=== PATIENT | female | born 1970 | race Caucasian/White ===

== ENCOUNTER → 2018-10-07 | Outpatient (CLI) | payer OTHER ==
[~2018-10-07] MED LIST: ALPR.5 PO; BUPR150ER PO; DANA200 PO; Lovastatin10 MG PO; META800 PO; OXCA300 PO; Percocet 5-3251 EACH PO; Zofran8 MG PO
== END | disposition home or self-care (01) ==
LOC: LAB EV 11:13 → LAB SHORT 11:13
DX: N39.0 Urinary tract infection, site not specified (principal)
CPT/HCPCS: 87077; 87086; 87186

== ENCOUNTER → 2018-10-24 | Outpatient (CLI) | payer OTHER | END | disposition home or self-care (01) | LOC: LAB 14:52 → LAB SHORT 14:52 | DX: N39.0 Urinary tract infection, site not specified (principal) | CPT/HCPCS: 87077; 87086; 87186 ==

== ENCOUNTER → 2019-01-23 | Outpatient (CLI) | payer OTHER ==
[2019-01-27 15:07] LABS: HPV 16 Negative (Negative); HPV 18 Negative (Negative); HPV OTHER HR TYPES Negative (Negative)
== END ==
LOC: LAB SHORT 10:00 → LAB 10:00
PROVIDERS: Registered Nurse Community Health
DX: Z12.4 Encounter for screening for malignant neoplasm of cervix (principal)
CPT/HCPCS: 87624; G0123

== ENCOUNTER → 2019-06-17 | Outpatient (CLI) | payer OTHER | END | disposition home or self-care (01) | LOC: LAB SHORT 12:51 → LAB EV 12:51 | DX: R31.9 Hematuria, unspecified (principal) | CPT/HCPCS: 87077; 87086; 87186 ==

== ENCOUNTER → 2019-10-03 | Outpatient (CLI) | payer OTHER | LOC: LAB EV 18:33 → LAB SHORT 18:33 | DX: R30.9 Painful micturition, unspecified (principal) | CPT/HCPCS: 87086 ==

== ENCOUNTER → 2019-11-26 | Outpatient (CLI) | payer OTHER | END | disposition home or self-care (01) | LOC: LAB EV 18:18 → LAB SHORT 18:18 | DX: N39.0 Urinary tract infection, site not specified (principal) | CPT/HCPCS: 87077; 87086; 87186 ==

== ENCOUNTER 2020-03-14 17:12 | Inpatient (IN) | payer OTHER ==
[~2020-03-14] VITALS: Ht 170.2 cm; Wt 73.0 kg
[2020-03-14 17:48] LABS: BASOPHILS ABSOLUTE AUTO 0.12 K/mm3 (0.00-0.23); BASOPHILS PERCENT AUTO 0 % (0-2); EOSINOPHILS ABSOLUTE AUTO 0.02 K/mm3 (0.00-0.68); EOSINOPHILS PERCENT AUTO 0 % (0-6); Hemoglobin 20.6 g/dL (11.5-16.0); IMMATURE GRAN ABSOLUTE AUTO 0.17 K/mm3 (0.00-0.10); IMMATURE GRAN PERCENT AUTO 1 % (0-1); LYMPHOCYTES ABSOLUTE AUTO 3.05 K/mm3 (0.84-5.20); LYMPHOCYTES PERCENT AUTO 11 % (21-46); MONOCYTES ABSOLUTE AUTO 1.41 K/mm3 (0.16-1.47); MONOCYTES PERCENT AUTO 5 % (4-13); Mean Corpuscular HGB 30.2 pg (26.0-34.0); Mean Corpuscular HGB Conc 33.9 g/dL (31.5-36.5); Mean Corpuscular Volume 89 fL (80-100); Mean Platelet Volume 9.2 fL (9.1-12.4); NEUTROPHILS ABSOLUTE AUTO 22.25 K/mm3 (1.96-9.15); NEUTROPHILS PERCENT AUTO 82 % (41-73); Platelet Count 483 K/mm3 (150-400); RDW Coefficient Variation 11.7 % (11.7-14.2); RDW Standard Deviation 38.5 fL (35.1-46.3); Red Blood Cell Count 6.81 M/mm3 (3.80-5.20); White Blood Cell Count 27.02 K/mm3 (4.00-11.30)
[2020-03-14 17:52] LABS: Hematocrit 60.8 % (33.0-51.0)
[2020-03-14 18:06] LABS: Albumin, Blood 3.6 g/dL (3.4-5.0); Albumin/Globulin Ratio 0.9 (0.8-1.8); Bilirubin, Total 0.6 mg/dL (0.1-1.0); Calcium, Blood 9.6 mg/dL (8.5-10.1); Creatinine, Blood 1.21 mg/dL (0.40-1.00); Globulin, Blood 4.1 g/dL (2.2-4.0); Potassium, Blood 3.9 mmol/L (3.5-5.5); Total Protein, Blood 7.7 g/dL (6.4-8.2)
[2020-03-14] MEDS ORDERED: Ketoconazole120 ML TOP (20:23)
[2020-03-14] MEDS ORDERED: Buspirone HCl5 MG PO (20:24)
[2020-03-14] MEDS ORDERED: ATORVASTATIN CA20 MG PO (20:25)
[2020-03-14 20:42] LABS: Source, Urine Clean Catch
[2020-03-14] MEDS ORDERED: DANA200 PO (20:44)
[2020-03-14 20:47] LABS: Appearance, Urine Cloudy (Clear); Blood, Urine 3+ (Neg); Color, Urine Yellow (P-Yellow); Glucose Qualitative, Urine Neg (Neg); Ketones, Urine 1+ (Neg); Leukocyte Esterase, Urine 2+ (Neg); Nitrite, Urine Pos (Neg); Protein, Urine 2+ (Neg); Specific Gravity, Urine 1.025 (1.003-1.022); Urobilinogen, Urine 1+ (Normal)
[2020-03-14 21:04] LABS: Bilirubin, Urine 1+ (Neg)
[2020-03-14 21:06] LABS: Bacteria Many /hpf; Red Blood Cells, Urine 0-2 /hpf (0-2); Squamous Epithelial Cells Many /hpf (Few)
[2020-03-14 22:29] LABS: BASOPHILS ABSOLUTE AUTO 0.07 K/mm3 (0.00-0.23); BASOPHILS PERCENT AUTO 0 % (0-2); EOSINOPHILS ABSOLUTE AUTO 0.03 K/mm3 (0.00-0.68); EOSINOPHILS PERCENT AUTO 0 % (0-6); Hematocrit 53.2 % (33.0-51.0); Hemoglobin 17.5 g/dL (11.5-16.0); IMMATURE GRAN ABSOLUTE AUTO 0.07 K/mm3 (0.00-0.10); IMMATURE GRAN PERCENT AUTO 0 % (0-1); LYMPHOCYTES ABSOLUTE AUTO 2.17 K/mm3 (0.84-5.20); LYMPHOCYTES PERCENT AUTO 13 % (21-46); MONOCYTES ABSOLUTE AUTO 1.17 K/mm3 (0.16-1.47); MONOCYTES PERCENT AUTO 7 % (4-13); Mean Corpuscular HGB 29.9 pg (26.0-34.0); Mean Corpuscular HGB Conc 32.9 g/dL (31.5-36.5); Mean Corpuscular Volume 91 fL (80-100); Mean Platelet Volume 9.2 fL (9.1-12.4); NEUTROPHILS ABSOLUTE AUTO 13.52 K/mm3 (1.96-9.15); NEUTROPHILS PERCENT AUTO 79 % (41-73); Platelet Count 367 K/mm3 (150-400); RDW Coefficient Variation 11.8 % (11.7-14.2); RDW Standard Deviation 39.6 fL (35.1-46.3); Red Blood Cell Count 5.86 M/mm3 (3.80-5.20); White Blood Cell Count 17.03 K/mm3 (4.00-11.30)
[2020-03-14 22:44] LABS: International Normalized Ratio 1.14; Prothrombin Time Results 12.1 Sec (9.7-11.5)
[2020-03-14 22:49] LABS: Anion Gap 6 mmol/L (6-16); Blood Urea Nitrogen 26 mg/dL (8-24); Bun/Creatinine Ratio 28.1 (12.0-20.0); CO2, Blood 29 mmol/L (21-32); Calcium, Blood 7.2 mg/dL (8.5-10.1); Chloride, Blood 103 mmol/L (98-108); Creatinine, Blood 0.93 mg/dL (0.40-1.00); Glomerular Filtration Rate >60 (60-); Glucose, Blood 144 mg/dL (70-99); Potassium, Blood 4.2 mmol/L (3.5-5.5); Sodium, Blood 138 mmol/L (136-145)
[2020-03-14 23:00] LABS: U Amphetamine Screen DETECTED; U Barbituate Screen Not Detected; U Benzodiazapine Screen Not Detected; U Buprenorphine Screen Not Detected; U Cannabinoids Screen DETECTED; U Cocaine Screen Not Detected; U Methadone Screen Not Detected; U Methamphetamine Screen DETECTED; U Opiates Screen DETECTED; U Oxycodone Screen Not Detected; U Phencyclidine Screen Not Detected; U Propoxyphene Screen Not Detected
--- NOTE | 2020-03-15 05:41 | NUR ---
SHIFT SUMMARY PT NEW ADMIT THIS SHIFT. AAOX4. NPO. DISCOMFORT DECREASED WITH 1MG IV DILAUDID X1 THIS SHIFT. NAUSEA CONTROLLED WITH ZOFRAN X1, NO EMESIS. PT ORIENTED TO ROOM + CALL LIGHT USE. DR PEARSON NOTIFIED OF CRITICAL LACTIC ACID, REPEAT AT 0600. PT SBA UP TO RESTROOM. GOOD URINE OUTPUT. AWAITING X-RAY THIS AM. PT CURRENTLY SITTING UP IN BED WATCHING TV WITH CALL LIGHT IN REACH.
[2020-03-15 06:06] LABS: BASOPHILS ABSOLUTE AUTO 0.03 K/mm3 (0.00-0.23); BASOPHILS PERCENT AUTO 0 % (0-2); EOSINOPHILS PERCENT AUTO 0 % (0-6); IMMATURE GRAN ABSOLUTE AUTO 0.05 K/mm3 (0.00-0.10); IMMATURE GRAN PERCENT AUTO 0 % (0-1); LYMPHOCYTES ABSOLUTE AUTO 0.84 K/mm3 (0.84-5.20); LYMPHOCYTES PERCENT AUTO 6 % (21-46); MONOCYTES ABSOLUTE AUTO 0.31 K/mm3 (0.16-1.47); MONOCYTES PERCENT AUTO 2 % (4-13); Mean Corpuscular HGB 30.1 pg (26.0-34.0); Mean Corpuscular HGB Conc 32.6 g/dL (31.5-36.5); Mean Corpuscular Volume 92 fL (80-100); Mean Platelet Volume 9.4 fL (9.1-12.4); NEUTROPHILS ABSOLUTE AUTO 14.02 K/mm3 (1.96-9.15); NEUTROPHILS PERCENT AUTO 92 % (41-73); Platelet Count 369 K/mm3 (150-400); RDW Coefficient Variation 11.7 % (11.7-14.2); RDW Standard Deviation 39.8 fL (35.1-46.3); Red Blood Cell Count 4.99 M/mm3 (3.80-5.20); White Blood Cell Count 15.25 K/mm3 (4.00-11.30)
[2020-03-15 06:21] LABS: Alanine Aminotransfer (ALT/SGP 197 U/L (12-78); Albumin, Blood 2.6 g/dL (3.4-5.0); Albumin/Globulin Ratio 0.8 (0.8-1.8); Alk Phos 120 U/L (50-136); Anion Gap 6 mmol/L (6-16); Aspartate Aminotrans (AST/SGOT 91 U/L (12-37); Bilirubin, Total 0.5 mg/dL (0.1-1.0); Blood Urea Nitrogen 18 mg/dL (8-24); Bun/Creatinine Ratio 22.9 (12.0-20.0); CO2, Blood 28 mmol/L (21-32); Calcium, Blood 7.8 mg/dL (8.5-10.1); Chloride, Blood 104 mmol/L (98-108); Creatinine, Blood 0.79 mg/dL (0.40-1.00); Globulin, Blood 3.2 g/dL (2.2-4.0); Glomerular Filtration Rate >60 (60-); Glucose, Blood 175 mg/dL (70-99); Potassium, Blood 4.4 mmol/L (3.5-5.5); Sodium, Blood 138 mmol/L (136-145); Total Protein, Blood 5.8 g/dL (6.4-8.2)
--- NOTE | 2020-03-15 09:40 | NUR ---
VERIFIED NS ORDER W/DR MORENO.
--- NOTE | 2020-03-15 10:27 | NUR ---
DR LONGORIA IN TO SEE PT.
--- NOTE | 2020-03-15 10:54 | NUR ---
PATIENT GAVE THIS [employer]INEER PERMISSION TO PROVIDE CARE ON 03/15/2020.
--- NOTE | 2020-03-15 12:20 | NUR ---
PT TO CT
--- NOTE | 2020-03-15 17:36 | NUR ---
SUMMARY NO ACUTE CHANGES T/O SHIFT. IV FLUIDS AND ABX INFUSING PER ORDERS. MEDICATED PT PER ORDERS FOR PAIN AND NAUSEA DURING SHIFT. INDEPENDENT IN ROOM. ADVANCING TO CLEAR LIQUIDS THIS EVENING PER DR LONGORIA'S ORDER.
[2020-03-16 04:46] LABS: BASOPHILS ABSOLUTE AUTO 0.02 K/mm3 (0.00-0.23); BASOPHILS PERCENT AUTO 0 % (0-2); EOSINOPHILS PERCENT AUTO 0 % (0-6); Hematocrit 38.3 % (33.0-51.0); Hemoglobin 12.8 g/dL (11.5-16.0); IMMATURE GRAN ABSOLUTE AUTO 0.05 K/mm3 (0.00-0.10); IMMATURE GRAN PERCENT AUTO 0 % (0-1); LYMPHOCYTES ABSOLUTE AUTO 0.83 K/mm3 (0.84-5.20); LYMPHOCYTES PERCENT AUTO 6 % (21-46); MONOCYTES ABSOLUTE AUTO 0.29 K/mm3 (0.16-1.47); MONOCYTES PERCENT AUTO 2 % (4-13); Mean Corpuscular HGB 30.6 pg (26.0-34.0); Mean Corpuscular HGB Conc 33.4 g/dL (31.5-36.5); Mean Corpuscular Volume 92 fL (80-100); Mean Platelet Volume 9.6 fL (9.1-12.4); NEUTROPHILS ABSOLUTE AUTO 13.18 K/mm3 (1.96-9.15); NEUTROPHILS PERCENT AUTO 92 % (41-73); Platelet Count 284 K/mm3 (150-400); RDW Coefficient Variation 11.8 % (11.7-14.2); RDW Standard Deviation 39.8 fL (35.1-46.3); Red Blood Cell Count 4.18 M/mm3 (3.80-5.20); White Blood Cell Count 14.37 K/mm3 (4.00-11.30)
[2020-03-16 05:03] LABS: Albumin, Blood 2.7 g/dL (3.4-5.0); Anion Gap 7 mmol/L (6-16); Blood Urea Nitrogen 11 mg/dL (8-24); Bun/Creatinine Ratio 19.2 (12.0-20.0); CO2, Blood 27 mmol/L (21-32); Calcium, Blood 7.9 mg/dL (8.5-10.1); Chloride, Blood 105 mmol/L (98-108); Creatinine, Blood 0.57 mg/dL (0.40-1.00); Glomerular Filtration Rate >60 (60-); Glucose, Blood 207 mg/dL (70-99); Phosphorus, Blood 2.5 mg/dL (2.5-4.9); Potassium, Blood 4.2 mmol/L (3.5-5.5); Sodium, Blood 139 mmol/L (136-145)
--- NOTE | 2020-03-16 06:38 | NUR ---
PT VSS T/O NIGHT. LACTIC ACID ELEVATED THIS AM, HOSPITALIST UPDATED, NO NEW ORDERS REC. IVF CONT PER ORDERS. PT MED FOR PAIN X1. PT HAD NO C/O N/V, IS VOIDING URIEN W/O DIFFICULTY. PT UP INDEP IN ROOM, CHRISTELLE WELL.
--- NOTE | 2020-03-16 18:25 | NUR ---
discharged DC'D IV, CATHETER INTACT. REVIEWED DC INSTRUCTIONS W/PT; VERBALIZED UNDERSTANDING. PT LEFT UNIT W/POSSESSIONS AND DC INSTRUCTIONS IN HAND BY AMBULATION ACCOMPANIED BY SPOUSE.
== END 2020-03-16 18:28 | disposition home or self-care (01) | DRG 389 ==
LOC: ER 17:12 → SURS 19:57
PROVIDERS: Emergency Medicine; Internal Medicine; Physician Assistant; ADMIT Surgery
DX: K56.7 Ileus, unspecified (principal); E87.2 Acidosis; N39.0 Urinary tract infection, site not specified; K56.609 Unspecified intestinal obstruction, unspecified as to partial versus complete obstruction; B96.20 Unspecified Escherichia coli [E. coli] as the cause of diseases classified elsewhere; E11.9 Type 2 diabetes mellitus without complications; D84.1 Defects in the complement system; I10 Essential (primary) hypertension; F17.210 Nicotine dependence, cigarettes, uncomplicated
CPT/HCPCS: 36415; 51701; 74018; 74176; 74177; 80048; 80053; 80069; 81001; 82785; 82947; 83605; 83690; 84145; 84703; 85025; 85610; 87077; 87086; 87186; 93005; 93010; 96361-59; 96374-59; 96375-59; 96376-59; 99285-25; A9270-GY; C9113; J0696; J1100; J1170; J1200; J1644; J2405; J2765; J7030; J7040; Q9967

== ENCOUNTER 2020-07-30 19:17 | Emergency (ER) | payer OTHER ==
[~2020-07-30] VITALS: Ht 170.2 cm; Wt 74.8 kg
[~2020-07-30 19:17] MED LIST changes: +ATORVASTATIN CA20 MG PO; +Buspirone HCl5 MG PO; +Ketoconazole120 ML TOP
== END 2020-07-31 00:42 | disposition home or self-care (01) ==
LOC: ER 19:17
DX: T78.3XXA Angioneurotic edema, initial encounter (principal)
CPT/HCPCS: 96374; 96375; 99284-25; J0597; J1100; J1200

== ENCOUNTER 2020-12-05 17:56 | Emergency (ER) | payer OTHER ==
[~2020-12-05] VITALS: Ht 170.2 cm; Wt 77.1 kg
== END 2020-12-05 19:06 | disposition home or self-care (01) ==
LOC: ER 17:56
DX: F45.8 Other somatoform disorders (principal); E11.9 Type 2 diabetes mellitus without complications; I10 Essential (primary) hypertension; Z87.891 Personal history of nicotine dependence
CPT/HCPCS: 70360; 99283-25

== ENCOUNTER 2022-06-08 08:55 | Emergency (ER) | payer OTHER ==
[~2022-06-08] VITALS: Ht 167.6 cm; Wt 77.1 kg
[2022-06-08 09:56] LABS: BASOPHILS ABSOLUTE AUTO 0.05 K/mm3 (0.00-0.23); BASOPHILS PERCENT AUTO 1 % (0-2); EOSINOPHILS ABSOLUTE AUTO 0.06 K/mm3 (0.00-0.68); EOSINOPHILS PERCENT AUTO 1 % (0-6); Hematocrit 42.8 % (33.0-51.0); Hemoglobin 14.7 g/dL (11.5-16.0); IMMATURE GRAN ABSOLUTE AUTO 0.03 K/mm3 (0.00-0.10); IMMATURE GRAN PERCENT AUTO 0 % (0-1); LYMPHOCYTES ABSOLUTE AUTO 1.58 K/mm3 (0.84-5.20); LYMPHOCYTES PERCENT AUTO 15 % (21-46); MONOCYTES ABSOLUTE AUTO 0.49 K/mm3 (0.16-1.47); MONOCYTES PERCENT AUTO 5 % (4-13); Mean Corpuscular HGB 30.3 pg (26.0-34.0); Mean Corpuscular HGB Conc 34.3 g/dL (31.5-36.5); Mean Corpuscular Volume 88 fL (80-100); Mean Platelet Volume 9.7 fL (9.1-12.4); NEUTROPHILS ABSOLUTE AUTO 8.49 K/mm3 (1.96-9.15); NEUTROPHILS PERCENT AUTO 79 % (41-73); Platelet Count 316 K/mm3 (150-400); RDW Coefficient Variation 11.8 % (11.7-14.2); RDW Standard Deviation 37.8 fL (35.1-46.3); Red Blood Cell Count 4.85 M/mm3 (3.80-5.20)
[2022-06-08 10:28] LABS: Albumin, Blood 3.7 g/dL (3.4-5.0); Albumin/Globulin Ratio 0.9 (0.8-1.8); Bilirubin, Total 0.6 mg/dL (0.1-1.0); Bun/Creatinine Ratio 26.2 (12.0-20.0); Calcium, Blood 9.3 mg/dL (8.5-10.1); Creatinine, Blood 0.65 mg/dL (0.40-1.00); Globulin, Blood 4.2 g/dL (2.2-4.0); Potassium, Blood 3.9 mmol/L (3.5-5.5); Total Protein, Blood 7.9 g/dL (6.4-8.2)
[2022-06-08] MEDS ORDERED: Prednisone20 MG PO (14:24)
== END 2022-06-08 14:45 | disposition home or self-care (01) ==
LOC: ER 08:55
PROVIDERS: Physician Assistant
DX: D84.1 Defects in the complement system (principal); K04.7 Periapical abscess without sinus; E11.9 Type 2 diabetes mellitus without complications; I10 Essential (primary) hypertension; Z79.899 Other long term (current) drug therapy
CPT/HCPCS: 36415; 70360; 80053; 85025; J1100; J2060; J2405; J7030

== ENCOUNTER → 2022-06-15 | Outpatient (CLI) | payer OTHER ==
[~2022-06-15] MED LIST changes: +METFORMIN ER G500 MG PO; +Prednisone20 MG PO
[2022-06-15 13:30] LABS: BASOPHILS ABSOLUTE AUTO 0.03 K/mm3 (0.00-0.23); BASOPHILS PERCENT AUTO 0 % (0-2); EOSINOPHILS ABSOLUTE AUTO 0.11 K/mm3 (0.00-0.68); EOSINOPHILS PERCENT AUTO 1 % (0-6); Hematocrit 41.1 % (33.0-51.0); Hemoglobin 14.2 g/dL (11.5-16.0); IMMATURE GRAN ABSOLUTE AUTO 0.07 K/mm3 (0.00-0.10); IMMATURE GRAN PERCENT AUTO 1 % (0-1); LYMPHOCYTES ABSOLUTE AUTO 2.02 K/mm3 (0.84-5.20); LYMPHOCYTES PERCENT AUTO 23 % (21-46); MONOCYTES ABSOLUTE AUTO 0.51 K/mm3 (0.16-1.47); MONOCYTES PERCENT AUTO 6 % (4-13); Mean Corpuscular HGB 30.3 pg (26.0-34.0); Mean Corpuscular HGB Conc 34.5 g/dL (31.5-36.5); Mean Corpuscular Volume 88 fL (80-100); Mean Platelet Volume 9.3 fL (9.1-12.4); NEUTROPHILS ABSOLUTE AUTO 6.06 K/mm3 (1.96-9.15); NEUTROPHILS PERCENT AUTO 69 % (41-73); Platelet Count 300 K/mm3 (150-400); RDW Coefficient Variation 11.9 % (11.7-14.2); RDW Standard Deviation 38.4 fL (35.1-46.3); Red Blood Cell Count 4.69 M/mm3 (3.80-5.20)
[2022-06-15 13:44] LABS: Albumin/Globulin Ratio 0.8 (0.8-1.8); Bilirubin, Total 0.3 mg/dL (0.1-1.0); Bun/Creatinine Ratio 31.1 (12.0-20.0); Calcium, Blood 8.5 mg/dL (8.5-10.1); Creatinine, Blood 0.61 mg/dL (0.40-1.00); Globulin, Blood 3.7 g/dL (2.2-4.0); Total Protein, Blood 6.7 g/dL (6.4-8.2)
== END | disposition home or self-care (01) ==
LOC: LAB SHORT 13:07 → LAB 13:07
PROVIDERS: Emergency Medicine
DX: R73.9 Hyperglycemia, unspecified (principal)
CPT/HCPCS: 80053; 83690; 85025

== ENCOUNTER → 2022-06-16 | Outpatient (CLI) | payer OTHER ==
[2022-06-16 17:01] LABS: BASOPHILS ABSOLUTE AUTO 0.06 K/mm3 (0.00-0.23); BASOPHILS PERCENT AUTO 1 % (0-2); EOSINOPHILS PERCENT AUTO 1 % (0-6); Hematocrit 45.1 % (33.0-51.0); Hemoglobin 15.7 g/dL (11.5-16.0); IMMATURE GRAN ABSOLUTE AUTO 0.08 K/mm3 (0.00-0.10); IMMATURE GRAN PERCENT AUTO 1 % (0-1); LYMPHOCYTES ABSOLUTE AUTO 2.39 K/mm3 (0.84-5.20); LYMPHOCYTES PERCENT AUTO 20 % (21-46); MONOCYTES ABSOLUTE AUTO 0.62 K/mm3 (0.16-1.47); MONOCYTES PERCENT AUTO 5 % (4-13); Mean Corpuscular HGB 30.5 pg (26.0-34.0); Mean Corpuscular HGB Conc 34.8 g/dL (31.5-36.5); Mean Corpuscular Volume 88 fL (80-100); Mean Platelet Volume 9.4 fL (9.1-12.4); NEUTROPHILS ABSOLUTE AUTO 8.46 K/mm3 (1.96-9.15); NEUTROPHILS PERCENT AUTO 72 % (41-73); Platelet Count 340 K/mm3 (150-400); RDW Coefficient Variation 11.9 % (11.7-14.2); RDW Standard Deviation 38.3 fL (35.1-46.3); Red Blood Cell Count 5.15 M/mm3 (3.80-5.20); White Blood Cell Count 11.71 K/mm3 (4.00-11.30)
[2022-06-16 17:10] LABS: Albumin, Blood 3.5 g/dL (3.4-5.0); Albumin/Globulin Ratio 0.8 (0.8-1.8); Bilirubin, Total 0.2 mg/dL (0.1-1.0); Bun/Creatinine Ratio 29.2 (12.0-20.0); Creatinine, Blood 0.72 mg/dL (0.40-1.00); Globulin, Blood 4.2 g/dL (2.2-4.0); Potassium, Blood 4.2 mmol/L (3.5-5.5); Total Protein, Blood 7.7 g/dL (6.4-8.2)
== END | disposition home or self-care (01) ==
LOC: LAB SHORT 16:56 → LAB 16:56
PROVIDERS: Emergency Medicine
DX: R73.9 Hyperglycemia, unspecified (principal)
CPT/HCPCS: 80053; 83690; 85025

== ENCOUNTER → 2022-06-17 | Outpatient (CLI) | payer OTHER ==
[2022-06-17 14:25] LABS: Bun/Creatinine Ratio 31.8 (12.0-20.0); Calcium, Blood 8.9 mg/dL (8.5-10.1); Creatinine, Blood 0.85 mg/dL (0.40-1.00); Potassium, Blood 4.1 mmol/L (3.5-5.5)
== END | disposition home or self-care (01) ==
LOC: LAB SHORT 13:30 → LAB 13:30
PROVIDERS: Physician Assistant Medical
DX: R74.8 Abnormal levels of other serum enzymes (principal); R73.9 Hyperglycemia, unspecified
CPT/HCPCS: 80048; 82150; 83690